=== PATIENT | male | born 1950 | race Two or more races ===

== ENCOUNTER 2022-03-04 07:11 | Day surgery (SDC) | payer MEDICARE ==
[~2022-03-04] VITALS: Ht 172.7 cm; Wt 96.2 kg
[~2022-03-04 07:11] MED LIST: ASPI-543 PO; ATOR20TA PO; CLOP75TA28 PO; CYCL-837 PO; DULO20CA PO; ISOS10TA2 PO; METF-370 PO; METO25TA5 PO
[2022-03-04] MEDS ORDERED: fentaNYL CITRATE 100 MCG/2 ML VL IV ONE (07:30)
[2022-03-04] MEDS ORDERED: MIDAZOLAM HCL 2MG/2ML 2ml VIAL (1mg/ml) IV ONE (07:30)
[2022-03-04] MEDS ORDERED: LIDOCAINE VISCOUS 2% 15ML UD MT ONE (07:30)
[2022-03-04] MEDS ORDERED: diphenhdrAMINE HCL 50 MG/1 ML VL IV PRN (07:30)
[2022-03-04] MEDS ORDERED: LIDOCAINE VISCOUS 2% 15ML UD ONE (08:02)
[2022-03-04] MEDS ORDERED: diphenhdrAMINE HCL 50 MG/1 ML VL ONE (08:02)
[2022-03-04] MEDS ORDERED: MIDAZOLAM HCL 2MG/2ML 2ml VIAL (1mg/ml) ONE (08:03)
[2022-03-04] MEDS ORDERED: fentaNYL CITRATE 100 MCG/2 ML VL ONE (08:03)
[2022-03-04 08:28] VITALS: BP 147/84
[2022-03-04] MEDS ORDERED: ATO40T PO (08:55)
[2022-03-04] MEDS ORDERED: ISOS1TAB28 PO (08:55)
[2022-03-04] MEDS ORDERED: METO-158 PO (08:55)
== END 2022-03-04 10:11 | disposition home or self-care (01) ==
LOC: CATH 07:11
PROVIDERS: ATTEND Internal Medicine Cardiovascular Disease
DX: I35.9 Nonrheumatic aortic valve disorder, unspecified (principal); I25.10 Atherosclerotic heart disease of native coronary artery without angina pectoris; E78.5 Hyperlipidemia, unspecified; I10 Essential (primary) hypertension; E11.9 Type 2 diabetes mellitus without complications; F17.200 Nicotine dependence, unspecified, uncomplicated; Z20.822 Contact with and (suspected) exposure to COVID-19
CPT/HCPCS: 93312; J2250; J3010; J7030; U0003; 99152